=== PATIENT | female | born 1955 | race Caucasian/White ===

== ENCOUNTER → 2017-02-12 | Outpatient (CLI) | payer MEDICAID ==
[~2017-02-12] MED LIST: GADOBUTROL 7.5 MMOL/7.5 ML PFS ONE
== END | disposition home or self-care (01) ==
LOC: CFH 10:03
PROVIDERS: ATTEND Radiology Radiation Oncology
DX: D32.0 Benign neoplasm of cerebral meninges (principal); R90.82 White matter disease, unspecified; I67.82 Cerebral ischemia; G43.111 Migraine with aura, intractable, with status migrainosus; H93.12 Tinnitus, left ear
CPT/HCPCS: 70553; A9585

== ENCOUNTER → 2017-02-27 | Outpatient (CLI) | payer MEDICAID | END | disposition home or self-care (01) | LOC: ROC 07:58 | PROVIDERS: ATTEND Radiology Radiation Oncology | DX: Z08 Encounter for follow-up examination after completed treatment for malignant neoplasm (principal); D32.0 Benign neoplasm of cerebral meninges | CPT/HCPCS: 99213; G0463 ==

== ENCOUNTER → 2018-02-25 | Outpatient (CLI) | payer MEDICAID | END | disposition home or self-care (01) | LOC: ROC 09:23 | PROVIDERS: ATTEND Radiology Radiation Oncology | DX: Z02.9 Encounter for administrative examinations, unspecified (principal) ==

== ENCOUNTER → 2020-05-24 | Outpatient (CLI) | payer MEDICARE, MEDICAID | END | disposition home or self-care (01) | LOC: CFH 15:31 | PROVIDERS: ATTEND Family Medicine | DX: D17.71 Benign lipomatous neoplasm of kidney (principal); K57.30 Diverticulosis of large intestine without perforation or abscess without bleeding; N20.0 Calculus of kidney; J98.4 Other disorders of lung; M41.86 Other forms of scoliosis, lumbar region; M47.816 Spondylosis without myelopathy or radiculopathy, lumbar region; Q89.09 Congenital malformations of spleen | CPT/HCPCS: 74176 ==